=== PATIENT | male | born 1970 | race African-American/Black ===

== ENCOUNTER 2019-08-27 05:08 | Inpatient (IN) | payer OTHER ==
[~2019-08-27] VITALS: Ht 170.2 cm; Wt 63.5 kg
[2019-08-27 08:12] LABS: BASOPHILS % 0.4 % (0.0-2.0); EOSINOPHILS % 0.5 % (0.0-5.0); HEMATOCRIT. 41.8 % (42.0-52.0); HEMOGLOBIN. 14.4 g/dL (14.0-18.0); LYMPHOCYTES % 22.5 % (20.0-50.0); MEAN CORPUSCULAR HEMOGLOBIN 31.5 pg (28.0-32.0); MEAN CORPUSCULAR VOLUME 91.7 fL (80.0-94.0); MEAN PLATELET VOLUME 8.3 fl (7.4-10.4); MONOCYTES % 4.7 % (2.0-8.0); NEUTROPHILS % 71.9 % (40.0-76.0); PLATELET 252 x1000/uL (130-400); RED BLOOD CELL COUNT 4.56 mill/uL (4.7-6.1); RED CELL DISTRIBUTION WIDTH 13.9 % (11.6-14.6)
[2019-08-27 08:20] LABS: CHLORIDE 107 mEq/L (98-107)
[2019-08-27 08:24] LABS: ETHANOL BLOOD < 10 mg/dL
[2019-08-27] MEDS ORDERED: ONDANSETRON HCL 4MG/2ML INJ IV PRN (08:30)
[2019-08-27] MEDS ORDERED: DOCUSATE SODIUM 100MG CAPSULE PO PRN (08:30)
[2019-08-27] MEDS ORDERED: NITROGLYCERIN 0.4MG TABLET SL SL PRN (08:30)
[2019-08-27] MEDS ORDERED: IPRATROPIUM/ALBUTEROL 0.5-3(2.5)MG/3ML NEB ORI PRN (08:30)
[2019-08-27] MEDS ORDERED: MAGNESIUM/ALUMINUM HYDROXIDE/SIMETHICONE 30ML UDC PO PRN (08:30)
[2019-08-27] MEDS ORDERED: KETOROLAC 15MG/ML VIAL IV PRN (08:30)
[2019-08-27] MEDS ORDERED: CLONIDINE 0.1MG TABLET PO PRN (08:30)
[2019-08-27] MEDS ORDERED: GUAIFENESIN 200MG/10ML SUGAR FREE UDC PO PRN (08:30)
[2019-08-27] MEDS ORDERED: ACETAMINOPHEN 325MG TABLET PO PRN ×2 (08:30)
[2019-08-27 09:25] LABS: D-DIMER 0.27 mg/L FEU (<0.50); PARTIAL THROMBOPLASTIN TIME 32.4 sec (23.4-31.0)
[2019-08-27] MEDS: ENOXAPARIN 40MG/0.4ML SYR SUBCUT SCH (09:30)
[2019-08-27] MEDS: FAMOTIDINE 20MG TABLET PO SCH ×2 (09:31→20:43)
[2019-08-27] MEDS: ASPIRIN 81MG EC TABLET PO SCH (09:31)
[2019-08-27] MEDS: ASCORBIC ACID 500 MG TABLET PO SCH ×2 (09:31→20:43)
[2019-08-27] MEDS: ZINC SULFATE 220 MG ( 50 ) CAPSULE PO SCH (09:31)
[2019-08-27 13:59] LABS: CLARITY URINE CLEAR (CLEAR); COLOR URINE YELLOW (YELLOW); KETONES URINE TRACE (NEGATIVE); LEUKOCYTE ESTERASE URINE TRACE (NEGATIVE); NITRITE URINE NEGATIVE (NEGATIVE); OCCULT BLOOD URINE NEGATIVE (NEGATIVE); PH URINE 5.5 (4.5-8.0); PROTEIN URINE NEGATIVE (NEGATIVE); SPECIFIC GRAVITY URINE 1.027 (1.005-1.030)
[2019-08-27 14:00] VITALS: BP 142/95
[2019-08-27 14:43] LABS: *AMPHETAMINES SCREEN URINE NEGATIVE (NEGATIVE); *BARBITURATES SCREEN URINE NEGATIVE (NEGATIVE); *BENZODIAZEPINES SCREEN URINE NEGATIVE (NEGATIVE); *COCAINE SCREEN URINE PRESUMTIVE POSITIVE (NEGATIVE)
[2019-08-27 14:44] LABS: CANNABINOID URINE SCREEN PRESUMTIVE POSITIVE (NEGATIVE); METHADONE URINE SCREEN NEGATIVE (NEGATIVE); OPIATES URINE SCREEN NEGATIVE (NEGATIVE); PHENCYCLIDINE URINE SCREEN NEGATIVE (NEGATIVE)
[2019-08-27 16:00] VITALS: BP 110/76
[2019-08-27 18:06] LABS: CREATINE KINASE 134 IU/L (39-308)
[2019-08-27 18:07] LABS: CREATINE KINASE MB FRACTION < 1.0 ng/mL (0.5-3.6)
[2019-08-27 20:00] VITALS: BP 123/93
[2019-08-27] MEDS ORDERED: ZOLPIDEM TARTRATE 5MG TABLET PO PRN (21:00)
[2019-08-27 23:17] LABS: CREATINE KINASE 137 IU/L (39-308)
[2019-08-27 23:18] LABS: CREATINE KINASE MB FRACTION < 1.0 ng/mL (0.5-3.6)
[2019-08-28] VITALS: BP 112/70
[2019-08-28 04:00] VITALS: BP 95/64
[2019-08-28 06:38] LABS: BASOPHILS % 0.3 % (0.0-2.0); EOSINOPHILS % 2.7 % (0.0-5.0); HEMATOCRIT. 40.4 % (42.0-52.0); HEMOGLOBIN. 13.6 g/dL (14.0-18.0); LYMPHOCYTES % 44.6 % (20.0-50.0); MEAN CORPUSCULAR HEMOGLOBIN 31.2 pg (28.0-32.0); MEAN CORPUSCULAR VOLUME 92.8 fL (80.0-94.0); MEAN PLATELET VOLUME 8.2 fl (7.4-10.4); NEUTROPHILS % 42.4 % (40.0-76.0); PLATELET 227 x1000/uL (130-400); RED BLOOD CELL COUNT 4.36 mill/uL (4.7-6.1); RED CELL DISTRIBUTION WIDTH 14.1 % (11.6-14.6)
[2019-08-28 08:00] VITALS: BP 122/78
[2019-08-28] MEDS: ASCORBIC ACID 500 MG TABLET PO SCH ×2 (09:00→21:13)
[2019-08-28] MEDS: ZINC SULFATE 220 MG ( 50 ) CAPSULE PO SCH (09:22)
[2019-08-28] MEDS: FAMOTIDINE 20MG TABLET PO SCH ×2 (09:22→21:13)
[2019-08-28] MEDS: ASPIRIN 81MG EC TABLET PO SCH (09:22)
[2019-08-28] MEDS: ENOXAPARIN 40MG/0.4ML SYR SUBCUT SCH (09:35)
[2019-08-28 12:00] VITALS: BP 132/64
[2019-08-28 16:00] VITALS: BP 134/62
[2019-08-28 20:00] VITALS: BP 142/98
[2019-08-29 04:00] VITALS: BP 115/78
[2019-08-29 08:00] VITALS: BP 132/80
[2019-08-29] MEDS: FAMOTIDINE 20MG TABLET PO SCH (08:08)
[2019-08-29] MEDS: ASCORBIC ACID 500 MG TABLET PO SCH (08:08)
[2019-08-29] MEDS: ASPIRIN 81MG EC TABLET PO SCH (08:08)
[2019-08-29] MEDS: ZINC SULFATE 220 MG ( 50 ) CAPSULE PO SCH (08:08)
[2019-08-29] MEDS: ENOXAPARIN 40MG/0.4ML SYR SUBCUT SCH (08:45)
== END 2019-08-29 14:17 | disposition left against medical advice (07) | DRG 816 ==
LOC: ER 05:08 → 7WST 07:45 → ENRESERV 12:16
PROVIDERS: ADMIT Internal Medicine; ATTEND Internal Medicine
DX: T40.5X1A Poisoning by cocaine, accidental (unintentional), initial encounter (principal); J96.00 Acute respiratory failure, unspecified whether with hypoxia or hypercapnia; J68.0 Bronchitis and pneumonitis due to chemicals, gases, fumes and vapors; F14.10 Cocaine abuse, uncomplicated; F12.10 Cannabis abuse, uncomplicated; F17.200 Nicotine dependence, unspecified, uncomplicated; Z79.1 Long term (current) use of non-steroidal anti-inflammatories (NSAID); Z79.899 Other long term (current) drug therapy; Y92.89 Other specified places as the place of occurrence of the external cause; Z20.828 Contact with and (suspected) exposure to other viral communicable diseases
CPT/HCPCS: 36415; 71045; 80053; 80061; 80305; 80320; 81003; 82550; 82553; 83036; 83605; 84145; 84484; 85025; 85379; 87635; 93005; 93970; 99291; J1650; G0480

== ENCOUNTER 2021-03-07 13:34 | Emergency (ER) | payer MEDICAID, OTHER ==
[~2021-03-07] VITALS: Ht 170.2 cm; Wt 64.0 kg
[2021-03-07 13:40] VITALS: BP 103/71
[2021-03-07] MEDS ORDERED: ACETAMINOPHEN 500MG TABLET PO ONE (22:30)
== END 2021-03-07 23:35 | disposition left against medical advice (07) ==
LOC: ER 13:34
DX: R07.89 Other chest pain (principal); R05.9 Cough, unspecified; R50.9 Fever, unspecified
CPT/HCPCS: 82962; 93005

== ENCOUNTER 2021-12-31 15:01 | Emergency (ER) | payer MEDICAID ==
[~2021-12-31] VITALS: Ht 170.2 cm; Wt 66.0 kg
[2021-12-31 15:17] VITALS: BP 117/77
[2021-12-31] MEDS ORDERED: IBUPROFEN 600MG TABLET PO STA (19:15)
== END 2021-12-31 21:16 | disposition left against medical advice (07) ==
LOC: ER 15:01
DX: M25.571 Pain in right ankle and joints of right foot (principal); M79.89 Other specified soft tissue disorders
CPT/HCPCS: 99281